=== PATIENT | male | born 1975 | race Caucasian/White ===

== ENCOUNTER 2020-12-11 11:08 | Emergency (ER) | payer BC, SELFPAY ==
--- NOTE | ~2020-12-11 | XR_ITS ---
XR heel LT min 2V DATE: 12/11/2020 11:37 INDICATION: Posterior heel pain, recent onset TECHNIQUE: Axial and lateral views COMPARISON: None FINDINGS: Prominent posterior and plantar calcaneal enthesopathy. No associated erosive change or per iostitis. No fracture or dislocation or bone destruction of the calcaneus. IMPRESSION: Prominent posterior and plantar calcaneal enthesopathy Reviewed, dictated and finalized at location B.
[2020-12-11 11:17] VITALS: BP 145/84; PULSE 55; RESP 16; TEMP 36.8; O2SAT 99
--- NOTE | 2020-12-11 11:52 | ED.EXTPRO ---
HPI - Extremity Problem General Chief complaint: Extremity Problem,Nontraumatic Stated complaint: lt heel pain Time Seen by Provider: 12/11/20 11:50 Source: patient, RN notes reviewed and old records reviewed Mode of arrival: ambulatory Limitations: no limitations History of Present Illness HPI Narrative: 45 year old male who presents to [facility] care with complaints of acute heel pain since yesterday. Patient denies any recent injury ,sport activity, or excessive walking or running. Patient noted to have limping gait with pain to posterior aspect of his left heel which is sharp and throbbing, denies any radiation of pain up into his posterior leg. He reports that he has been taking Ibuprofen with no improvement in his symptoms. MD Complaint: extremity pain Onset (ago): day(s) (1) Pain Consistency: constant Location: left and other (heel) Severity scale (1-10): 7 Quality: sharp and other (throbbing) Radiation: none Exacerbating factors: weight bearing and walking Associated symptoms: denies other symptoms Context: other (no injury or past history) Related Data Allergies Allergy/AdvReac Type Severity Reaction Status Date / Time No Known Drug Allergies Allergy Unknown none Verified 12/11/20 11:17 Review of Systems Review of Systems: CONSTITUTIONAL: Denies fever, chills, or sweats. EYES: Denies visual changes, redness, or discharge. ENT: Denies rhinorrhea, congestion, sore throat, or otalgia. CARDIOVASCULAR: Denies chest pain, palpitations, or edema. RESPIRATORY: Denies cough or dyspnea. GASTROINTESTINAL: Denies abdominal pain, nausea, vomiting, or diarrhea. GENITOURINARY: Denies dysuria or hematuria. SKIN: Denies rash or itching. MUSCULOSKELETAL: Denies back pain,positive for left posterior heel pain, or myalgia. NEUROLOGIC: Denies headache, numbness, or weakness. PSYCHIATRIC: Denies anxiety or depression. All systems reviewed & are unremarkable except as noted in HPI and below PMFSH Past Medical History Medical History (Updated 12/11/20 @ 12:21 by Akua Cruz NP) Exercise-induced asthma Surgical History Surgical History (Updated 12/11/20 @ 12:20 by Akua Cruz NP) [place] teeth extracted Family History Family History Father Patient's father is in good health Sibling Patient's brother is in good health Other Family history of malignant neoplasm Hypertension Social History Social History (Updated 12/11/20 @ 12:21 by Akua Cruz NP) Smoking status: Never smoker Second hand tobacco smoke exposure: No Alcohol intake: current Alcohol use details: social Substance use: never Living arrangements: with family Gender identity (if verbalized by the patient): Male Comments At time of signature, agree with nursing past medical, surgical, social and family history. There is no relevant family history pertinent to the presenting complaint Exam Narrative: GENERAL: Well-appearing, well-nourished, and in no acute distress. HEAD: Normocephalic, atraumatic. EYES: PERRLA and EOMI. ENT: Nares clear, no rhinorrhea or epistaxis. Mucous membranes moist. NECK: Supple. no lymphadenopathy CHEST: Clear to auscultation. No respiratory distress. SAO2 99% on room air HEART: Regular rate and rhythm. No murmur heard. Normal peripheral pulses. ABDOMEN: Soft, nontender, nondistended, normal active bowel sounds. EXTREMITIES: Normal range of motion. No edema. Pain to posterior aspect of left heel with no radiation of pain up the posterior lower leg, no pain at the sides of heel or along calcaneus. Patient has normal mobility of left foot with circulation and sensation intact. SKIN: Warm, dry, no rash. NEURO: No focal deficits. Alert and oriented x3. Course Vital Signs Vital signs: Vital Signs Temperature 36.8 C 12/11/20 11:17 Pulse Rate 55 L 12/11/20 11:17 Respiratory Rate 16 12/11/20 11:17 Blood Pressure 145/84 H 12/11/20 11:17
== END 2020-12-11 12:18 | disposition home or self-care (01) ==
PROVIDERS: Emergency Provider Registered Nurse; PCP Family Medicine
DX: M77.32 Calcaneal spur, left foot (principal); J45.990 Exercise induced bronchospasm
CPT/HCPCS: 73650; 99213; G0463

== ENCOUNTER 2021-07-01 14:37 | Outpatient (CLI) | payer BC, SELFPAY ==
--- NOTE | ~2021-07-01 | US_ITS ---
US scrotum doppler INDICATION: Right testicular pain TECHNIQUE: Testicular sonogram utilizing grayscale and color Doppler FINDINGS: The testes are normal in size and appearance. No focal lesions are seen. The right testes measures 5.1 centimeters, and the left testis measures 4.7 cm. There is slightly increased flow in th e left testicle. There is a left epididymal cyst measuring 4 mm. There are bilateral varicoceles. IMPRESSION: 1. Asymmetrically increased flow in the left testicle. Early orchitis is not excluded. 2: Bilateral varicoceles. Reviewed, dictated and finalized at location B. D [employer] IMPRESSION: 1. Asymmetrically increased flow in the left testicle. Early orchitis is not e xcluded. 2: Bilateral varicoceles.
== END 2021-07-01 14:38 | disposition home or self-care (01) ==
PROVIDERS: PCP Family Medicine; Visit Provider Family Medicine
DX: I86.1 Scrotal varices (principal); L72.0 Epidermal cyst
CPT/HCPCS: 76870; 93976

== ENCOUNTER → 2023-02-02 10:48 | Outpatient (CLI) | payer BC, SELFPAY ==
--- NOTE | ~2023-02-02 | MR_ITS ---
MRI of the right shoulder Technique: Axial proton-density fat-sat images, coronal proton density fat-sat and T2 fat-sat images, and sagittal T1-weighted and T2 fat-sat images were acquired. Clinical History: Impingement Findings: There is mild AC joint degenerative change. Coracoclavicular, coracoacromial, and coracohum eral ligaments are intact. Supraspinatus and infraspinatus tendons are intact, without definite partial or full-thickness tear. There is focal moderate tendinosis of the distal supraspinatus tendon insertion. Subscapularis tendon is intact. Tendon of the long head of the biceps is intact. No definite labral tear identified. Inferior glenohumeral ligament is mildly thickened and hyperintense. There is minimal glenohumeral bessie int effusion. No fluid distention of the subacromial/subdeltoid bursa. There is minimal chondromalaci a of the humeral head. No muscle atrophy or edema. Impression: Thickening and increased signal of the inferior glenohumeral ligament could reflect adhesive capsulit is. No rotator cuff or labral tear. Focal moderate tendinosis of the distal supraspinatus tendon insertio n region. Mild AC joint degenerative change. Reviewed, dictated and finalized at location . Impression: Thickening and increased signal of the inferior glenohumeral ligament could ref lect adhesive capsulitis. No rotator cuff or labral tear. Focal moderate tendinosis of the distal suprasp inatus tendon insertion region. Mild AC joint degenerative change.
== END ==
PROVIDERS: PCP Family Medicine; Visit Provider Physician Assistant
DX: M75.41 Impingement syndrome of right shoulder (principal); M75.101 Unspecified rotator cuff tear or rupture of right shoulder, not specified as traumatic; M19.011 Primary osteoarthritis, right shoulder
CPT/HCPCS: 73221